=== PATIENT | female | born 1970 | race Caucasian/White ===

== ENCOUNTER 2016-06-28 19:39 | Emergency (ER) | payer OTHER ==
[2016-06-28 21:53] LABS: HEMOGLOBIN 14.6 gm/dl (12.3-15.3); RED BLOOD COUNT 5.35 M/UL (4.00-5.10)
[2016-06-28 22:12] LABS: BUN/CREATININE RATIO 13 (0-10)
== END 2016-06-29 11:37 | disposition home or self-care (01) ==
LOC: ER1 19:39 → ZEROF 06-29 01:40 → ER1 06-29 01:40 → ZEROF 06-29 11:37
PROVIDERS: Emergency Medicine
DX: I24.9 Acute ischemic heart disease, unspecified (principal); R07.89 Other chest pain; E03.9 Hypothyroidism, unspecified; F17.290 Nicotine dependence, other tobacco product, uncomplicated; Z90.49 Acquired absence of other specified parts of digestive tract; Z88.1 Allergy status to other antibiotic agents; Z88.5 Allergy status to narcotic agent; Z79.02 Long term (current) use of antithrombotics/antiplatelets; Z79.899 Other long term (current) drug therapy
CPT/HCPCS: 36415; 71010; 80053; 80061; 82550; 82553; 83690; 83874; 83880; 84484; 84703; 85025; 85379; 85610; 85730; 93005; 96372; 96374; 99285; J1650; J1885; J2270; J2405

== ENCOUNTER 2016-09-06 02:18 | Emergency (ER) | payer OTHER ==
[2016-09-06 03:20] LABS: HEMOGLOBIN 13.5 gm/dl (12.3-15.3); RED BLOOD COUNT 4.91 M/UL (4.00-5.10); WHITE BLOOD COUNT 9.3 K/UL (4.5-11.0)
[2016-09-06 03:47] LABS: BUN/CREATININE RATIO 9 (0-10)
== END 2016-09-06 10:35 | disposition home or self-care (01) ==
LOC: ER1 02:18
PROVIDERS: Family Medicine
DX: R07.89 Other chest pain (principal); R51 Headache; E78.5 Hyperlipidemia, unspecified; E07.9 Disorder of thyroid, unspecified; I51.9 Heart disease, unspecified; F17.210 Nicotine dependence, cigarettes, uncomplicated; I20.9 Angina pectoris, unspecified; Z86.73 Personal history of transient ischemic attack (TIA), and cerebral infarction without residual deficits; Z79.899 Other long term (current) drug therapy; Z88.8 Allergy status to other drugs, medicaments and biological substances; Z90.49 Acquired absence of other specified parts of digestive tract; Z98.51 Tubal ligation status
CPT/HCPCS: 36415; 70450; 71010; 80053; 82550; 82553; 83874; 84484; 85025; 93005; 93880; 96374; 96375; 99285; J1200; J1885; J2765; J7030

== ENCOUNTER → 2016-09-20 | Outpatient (CLI) | payer OTHER | LOC: KOH-I 14:52 | DX: S39.92XA Unspecified injury of lower back, initial encounter (principal); W19.XXXA Unspecified fall, initial encounter; Z98.1 Arthrodesis status; M47.896 Other spondylosis, lumbar region | CPT/HCPCS: 72100; 72220 ==

== ENCOUNTER → 2016-09-23 | Outpatient (CLI) | payer OTHER | LOC: KOH-I 09-16 15:15 | DX: M54.12 Radiculopathy, cervical region (principal); R51 Headache; M50.30 Other cervical disc degeneration, unspecified cervical region | CPT/HCPCS: 72141 ==

== ENCOUNTER → 2021-02-08 | Outpatient (CLI) | payer OTHER | LOC: HEART 5 14:41 | DX: I49.9 Cardiac arrhythmia, unspecified (principal) ==

== ENCOUNTER → 2021-07-08 | Outpatient (CLI) | payer OTHER | LOC: KOH-I 13:35 | DX: M48.02 Spinal stenosis, cervical region (principal); M48.061 Spinal stenosis, lumbar region without neurogenic claudication; M40.46 Postural lordosis, lumbar region; Z98.1 Arthrodesis status | CPT/HCPCS: 72141; 72148 ==